=== PATIENT | female | born 1990 | race Caucasian/White ===

== ENCOUNTER 2016-12-07 03:31 | Observation (INO) | payer SELFPAY ==
[~2016-12-07] VITALS: Ht 172.7 cm; Wt 85.0 kg
[2016-12-07] VITALS (11 sets, daily range): BP systolic 111–144; BP diastolic 63–78; PULSE 60–78; RESP 15–18; TEMP 98–98.5; O2SAT 95–99
[2016-12-07] MEDS ORDERED: SODIUM CHLOR 0.9% 1000 ML INJ 1,000 ML IV ONE (03:55)
--- NOTE | 2016-12-07 03:59 | PD ---
HPI Chief Complaint: OD/ Ingestion Time Seen by Provider: 03:47 Travel History International Travel<30 days: No Contact w/Intl Traveler<30days: No Traveled to known affect area: No History of Present Illness HPI 26yo F with PMH of depression presents to the ED under No Act for suicidal attempt with overdose. Pt took 60 pills of trazadone and 60 pills of lexapro at around 3am. Her boyfriend called [facility]. Pt complaints of some headache. Denies any alcohol or drug use. Denies any fever, chest pain, sob, n/v, abdominal pain, focal weakness or numbness. PFSH Past Medical History Depression: Yes Tetanus Vaccination: Never Vaccinated Influenza Vaccination: No ?: Not LMP: 07/28/16 Past Surgical History Surgical History: No Previous Surgery Social History Alcohol Use: Yes Tobacco Use: No Substance Use: No Allergies-Medications (Allergen,Severity, Reaction): Coded Allergies: No Known Allergies (Unverified , 12/07/16) Reported Meds & Prescriptions Reported Meds & Active Scripts Active No Active Prescriptions or Reported Medications Review of Systems Except as stated in HPI: all other systems reviewed are Neg Physical Exam Narrative GENERAL: 26yo F sleepy but arousable. SKIN: Focused skin assessment warm/dry. HEAD: Atraumatic. Normocephalic. EYES: Pupils equal and round at 4mm bilaterally. EOMI. ENT: No nasal bleeding or discharge. Mucous membranes pink and moist. NECK: Trachea midline. No JVD. CARDIOVASCULAR: Regular rate and rhythm. No murmur appreciated. RESPIRATORY: No accessory muscle use. Clear to auscultation. Breath sounds equal bilaterally. GASTROINTESTINAL: Abdomen soft, non-tender, nondistended. MUSCULOSKELETAL: No obvious deformities. No clubbing. No cyanosis. No edema. NEUROLOGICAL: Sleep but arousable. Answers all questions. No focal neurologic deficits. Data Data Last Documented VS Vital Signs Date Time Temp Pulse Resp B/P (MAP) Pulse Ox O2 Delivery O2 Flow Rate FiO2 12/07/16 10:26 67 15 120/65 (83) 95 Room Air 12/07/16 09:50 2.00 12/07/16 03:47 98.3 Orders Orders Electrocardiogram (12/07/16 03:55) Complete Blood Count With Diff (12/07/16 03:55) Comprehensive Metabolic Panel (12/07/16 03:55) Prothrombin Time / Inr (Pt) (12/07/16 03:55) Act Partial Throm Time (Ptt) (12/07/16 03:55) Urinalysis - C+S If Indicated (12/07/16 03:55) Iv Access Insert/Monitor (12/07/16 03:55) Ecg Monitoring (12/07/16 03:55) Oximetry (12/07/16 03:55) Psych Screen (12/07/16 03:55) Sodium Chloride 0.9% Flush (Ns Flush) (12/07/16 04:00) Sodium Chlor 0.9% 1000 Ml Inj (Ns 1000 M (12/07/16 03:55) Call Poison Control (12/07/16 03:55) Alcohol (Ethanol) (12/07/16 03:55) Salicylates (Aspirin) (12/07/16 03:55) Tylenol (Acetaminophen) (12/07/16 03:55) Bhcg Screen Qualitative (12/07/16 03:55) Urine Culture (12/07/16 04:35) Drug Screen, Random Urine (12/07/16 05:21) Electrocardiogram (12/07/16 ) Potassium Chloride (Kcl) (12/07/16 06:45) Magnesium (Mg) (12/07/16 06:45) Electrocardiogram (12/07/16 09:00) Place In Observation (12/07/16 ) Code Status (12/07/16 09:36) Vital Signs (Adult) Q4H (12/07/16 09:36) Activity Bed Rest With Brp (12/07/16 09:36) Senior Mainframe Programmer Analyst / Telemetry .CONTINUOUS (12/07/16 09:36) Diet Regular Basic (12/07/16 Breakfast) Sodium Chlor 0.9% 1000 Ml Inj (Ns 1000 M (12/07/16 09:36) Sodium Chloride 0.9% Flush (Ns Flush) (12/07/16 09:45) Sodium Chloride 0.9% Flush (Ns Flush) (12/07/16 09:45) Basic Metabolic Panel (Bmp) (12/08/16 06:00) Complete Blood Count With Diff (12/08/16 06:00) Electrocardiogram (12/07/16 12:00) Case Management Consult (12/07/16 09:36) Scd Bilateral/Knee High RUSTY.BID (12/07/16 09:36) Naloxone Inj (Narcan Inj) (12/07/16 09:45) ^ Sitter (12/07/16 09:36) Consult Psychiatry (12/07/16 ) Resp Oxygen Stephan C Titrat 1-4 L (12/07/16 ) (Hub Use Only)Inp Phy Cons/Ref (12/07/16 ) Admit Order (Ed Use Only) (12/07/16 10:30) Labs Laboratory Tests Test 12/07/16 04:05 12/07/16 04:35 White Blood Count 7.9 TH/MM3 Red Blood Count 4.09 MIL/MM3 Hemoglobin 12.0 GM/DL Hematocrit 35.1 % Mean Corpuscular Volume 85.9 FL Mean Corpuscular Hemoglobin 29.3 PG Mean Corpuscular Hemoglobin Concent 34.1 % Red Cell Distribution Width 12.7 % Platelet Count 295 TH/MM3 Mean Platelet Volume 7.6 FL Neutrophils (%) (Auto) 77.0 % Lymphocytes (%) (Auto) 17.6 % Monocytes (%) (Auto) 3.6 % Eosinophils (%) (Auto) 1.0 % Basophils (%) (Auto) 0.8 % Neutrophils # (Auto) 6.1 TH/MM3 Lymphocytes # (Auto) 1.4 TH/MM3 Monocytes # (Auto) 0.3 TH/MM3 Eosinophils # (Auto) 0.1 TH/MM3 Basophils # (Auto) 0.1 TH/MM3 CBC Comment DIFF FINAL Differential Comment Prothrombin Time 11.7 SEC Prothromb Time International Ratio 1.1 RATIO Activated Partial Thromboplast Time 23.2 SEC Blood Urea Nitrogen 8 MG/DL Creatinine 0.62 MG/DL Random Glucose 127 MG/DL Total Protein 7.4 GM/DL Albumin 3.7 GM/DL Calcium Level 8.5 MG/DL Alkaline Phosphatase 57 U/L Aspartate Amino Transf (AST/SGOT) 19 U/L Alanine Aminotransferase (ALT/SGPT) 29 U/L Total Bilirubin 0.5 MG/DL Sodium Level 143 MEQ/L Potassium Level 3.2 MEQ/L Chloride Level 110 MEQ/L Carbon Dioxide Level 25.0 MEQ/L Anion Gap 8 MEQ/L Estimat Glomerular Filtration Rate 117 ML/MIN Magnesium Level 2.0 MG/DL Beta HCG, Qualitative LESS THAN 1 MIU/ML Salicylates Level LESS THAN 1.7 MG/DL Acetaminophen Level LESS THAN 2.0 MCG/ML Ethyl Alcohol Level LESS THAN 3 MG/DL Urine Color YELLOW Urine Turbidity HAZY Urine pH 5.5 Urine Specific [place] 1.028 Urine Protein TRACE mg/dL Urine Glucose (UA) NEG mg/dL Urine Ketones 10 mg/dL Urine Occult Blood NEG Urine Nitrite NEG Urine Bilirubin NEG Urine Urobilinogen 2.0 MG/DL Urine Leukocyte Esterase NEG Urine RBC 2 /hpf Urine WBC 2 /hpf Urine Squamous Epithelial Cells 2 /hpf Urine Amorphous Sediment RARE Urine Bacteria OCC /hpf Urine Hyaline Casts 2 /lpf Urine Mucus MANY /lpf Microscopic Urinalysis Comment CATH-CULTURE IND Urine Opiates Screen NEG Urine Barbiturates Screen NEG Urine Amphetamines Screen NEG Urine Benzodiazepines Screen NEG Urine Cocaine Screen NEG Urine Cannabinoids Screen NEG MDM Medical Decision Making Medical Screen Exam Complete: Yes Emergency Medical Condition: Yes Interpretation(s) EKG: NSR 73bpm Normal axis. TWI inversions V2, V3. QTc 450ms. EKG #2: NSR 84bpm. Normal axis. QTc prolonged at 493ms. Differential Diagnosis Overdose vs. seizure precaution Narrative Course 26yo F with suicidal attempt by overdosing on trazadone and lexapro. Pt is sleepy but easily arousable and answers questions. Follows commands. Poison control contacted and recommended repeat EKG from first EKG. Labs reviewed, no leukocytosis. Mild hypokalemia, replaced orally. Calcium normal. negative. LFTs normal. Alcohol negative. Acetaminophen negative. Salicylate negative. Utox negative. Repeat EKG showed prolong QTc so called poison control and they recommend adding magnesium and repeat EKG in 2 hours. Pt has been monitored on monitoring engineer in the ED and currently maintaining airway and following commands. Sign out to next team to follow up with repeat EKG and magnesium level and admit. Critical Care Narrative Aggregate critical care time was 40 minutes. Time to perform other billable procedures was not included in the critical care time. My time did not include minutes spent treating any other patients simultaneously or on activities that did not directly contribute to the patient's treatment. The services I provided to this patient were to treat and/or prevent clinically significant deterioration that could result in respiratory deterioration or . I provided critical care services requiring my management, as noted below: Chart data review, documentation time, medication orders and management, vital sign assessments/reviewing monitor data, ordering and reviewing lab tests, ordering and interpreting/reviewing x- rays and diagnostic studies. Diagnosis Primary Impression: Overdose Qualified Codes: T50.902A - Poisoning by unspecified drugs, medicaments and biological substances, intentional self-harm, initial encounter Admitting Information Admitting Physician Requests: Admit Scripts No Active Prescriptions or Reported Meds Abida Barba DO Dec 07, 2016 03:59
[2016-12-07] MEDS ORDERED: SODIUM CHLORIDE 0.9% FLUSH 10 ML FLUSH IVF PRN (04:00)
[2016-12-07 04:22] LABS: AUTOMATED NEUTROPHIL # 6.1 TH/MM3 (1.8-7.7); BASOPHIL # 0.1 TH/MM3 (0-0.2); BASOPHIL % 0.8 % (0.0-2.0); EOSINOPHIL # 0.1 TH/MM3 (0-0.4); HEMATOCRIT 35.1 % (35.0-46.0); HEMO FLAGS DIFF FINAL; LYMPH % 17.6 % (9.0-44.0); LYMPHOCYTE # 1.4 TH/MM3 (1.0-4.8); MEAN CELL VOLUME 85.9 FL (80.0-100.0); MEAN CORPUSCULAR HEMOGLOBIN 29.3 PG (27.0-34.0); MEAN CORPUSCULAR HGB CONC 34.1 % (32.0-36.0); MONO % 3.6 % (0.0-8.0); PLATELET COUNT 295 TH/MM3 (150-450); RED BLOOD COUNT 4.09 MIL/MM3 (4.00-5.30); RED CELL DISTRIBUTION WIDTH 12.7 % (11.6-17.2); WHITE BLOOD COUNT 7.9 TH/MM3 (4.0-11.0)
[2016-12-07 04:42] LABS: ALT (GPT) 29 U/L (10-53); ANION GAP 8 MEQ/L (5-15); AST (GOT) 19 U/L (15-37); BLOOD UREA NITROGEN 8 MG/DL (7-18); CHLORIDE 110 MEQ/L (98-107); GLOMERULAR FILTRATION RATE 117 ML/MIN (>89); POTASSIUM 3.2 MEQ/L (3.5-5.1); SODIUM (NA) 143 MEQ/L (136-145)
[2016-12-07 04:47] LABS: ALKALINE PHOSPHATASE 57 U/L (45-117); APTT (PATIENT) 23.2 SEC (24.3-30.1); INTERNATIONAL NORMALIZED RATIO 1.1 RATIO; PROTHROMBIN TIME - PATIENT 11.7 SEC (9.8-11.6); TOTAL BILIRUBIN ADULT 0.5 MG/DL (0.2-1.0)
[2016-12-07 04:48] LABS: ALCOHOL LESS THAN 3 MG/DL (0-5); BHCG SCREEN QUALITATIVE LESS THAN 1 MIU/ML (0-5)
[2016-12-07 04:49] LABS: ACETAMINOPHEN LESS THAN 2.0 MCG/ML (10.0-30.0)
[2016-12-07 04:57] LABS: BACTERIA, URINE OCC /hpf; BLOOD, URINE NEG (NEG); GLUCOSE,URINE NEG (NEG); HYALINE CAST, URINE 2 /lpf (RARE); KETONE, URINE 10 mg/dL (NEG); MUCUS URINE MANY /lpf (OCC); NITRITE,URINE NEG (NEG); PH, URINE 5.5 (5.0-8.5); SQUAMOUS EPITHELIAL CELL URINE 2 /hpf (0-5); URINE COLOR YELLOW (YELLW/STRAW)
[2016-12-07 04:59] LABS: COMMENT (UR) CATH-CULTURE IND; CULTURE IF INDICATED CATH CULTURE IND
[2016-12-07] MEDS ORDERED: POTASSIUM CHLORIDE 20 MEQ CONTROLLED RELEASE TAB PO ONE (06:45)
--- NOTE | 2016-12-07 07:26 | EKG ---
Date Performed: 12/07/2016 Time Performed: 06:24:26 PTAGE: 26 years EKG: Sinus rhythm NONSPECIFIC T-WAVE ABNORMALITY PROLONGED QT INTERVAL ABNORMAL ECG Compared to prior electrocardiogra m, Nonspecific T wave changes are less marked PREVIOUS TRACING : 12/07/2016 04.10 DOCTOR: Chepe Castillo Interpretating Date/Time 12/07/2016 07:25:26
--- NOTE | 2016-12-07 07:27 | EKG ---
Date Performed: 12/07/2016 Time Performed: 04:10:25 PTAGE: 26 years EKG: Sinus rhythm NONSPECIFIC T-WAVE ABNORMALITY Prolonged QT interval NO PREVIOUS TRACING DOCTOR: Chepe Castillo Interpretating Date/Time 12/07/2016 07:26:54
--- NOTE | 2016-12-07 09:14 | HHI.HP ---
HPI Service Family Medicine Primary Care Physician No Primary Care Physician Admission Diagnosis Diagnoses: International Travel<30 Days: No Contact w/Intl Traveler<30days: No Known Affected Area: No History of Present Illness Patient is a 26 year old female with PMH of depression presented to the ED under No Act for suicidal attempt over overdosing reportedly with 60 tablets of trazodone and 60 tablets of Lexapro at [place]. 03:00 today. Patient seen and examined in ED. No family or friends present with the patient however the patient is alert and oriented fully enough to answer questions appropriately. She states she took her whole bottle of trazodone early this morning around 3am and her whole bottle of lexapro as well. She states she is unsure exactly how many tablets this was but possibly 60 of her trazodone and at least 30 tablets of Lexapro. She states she took these with the intent to commit suicide. She denies to me a previous history of suicidal attempt. She states she recently moved to the [facility] and currently does not have a PCP nor psychiatrist and she had these medications prescribed from her previous psychiatrist. She had been staying with her mother in law a couple weeks ago but states she is now staying at a hotel. She reports currently feeling fatigued and having a headache. She otherwise does not have any complaints. She specifically denies any chest pain, palpitations, shortness of breath, abdominal pain, fevers or chills, blurry vision, numbness or weakness of any extremity. (Carter Moore MD R2) Review of Systems Constitutional: DENIES: Fever, Chills Eyes: DENIES: Blurred vision, Diplopia Respiratory: DENIES: Cough, Wheezing, Shortness of breath Cardiovascular: DENIES: Chest pain, Palpitations Gastrointestinal: DENIES: Abdominal pain, Nausea, Vomiting Neurologic: COMPLAINS OF: Headache, DENIES: Localized weakness Psychiatric: COMPLAINS OF: Depression, Suicidal Ideation, DENIES: Homicidal Ideation (Carter Moore MD R2) Past Family Social History Past Medical History Depression Past Surgical History Denies (Carter Moore MD R2) Allergies: Coded Allergies: No Known Allergies (Unverified , 12/07/16) Family History Mother: h/o etoh abuse and illicit drug abuse Father: Pt reports father had colon or prostate cancer, unsure of which Social History Tobacco: denies Etoh: denies any history of heavy drinking, states last drink about 2 weeks ago Illicit drug abuse: patient admits to remote history of cocaine use, none recently (Carter Moore MD R2) Physical Exam Vital Signs Vital Signs Date Time Temp Pulse Resp B/P (MAP) Pulse Ox O2 Delivery O2 Flow Rate FiO2 12/07/16 05:52 78 18 117/78 (91) 98 Nasal Cannula 2.00 12/07/16 04:06 99 Room Air 12/07/16 03:47 98.3 62 16 144/70 (94) 95 Physical Exam GENERAL: Ambulatory from bed to bathroom prior to history. Lethargic. Able to be aroused and conversive. NAD. NEURO: Oriented to place. Normal speech. printing and stamping supervisor grossly intact. Motor grossly normal. SKIN: Warm and dry. No rashes or erythema. HEAD: Normocephalic. Atraumatic. EYES: PERRL. EOMI. No scleral icterus. No injection or drainage. ENT: No nasal drainage. Moist mucous membranes. No oral ulcers or lesions. NECK: Supple, trachea midline. No JVD. CARDIOVASCULAR: Regular rate and rhythm without murmurs, rubs, or gallops. Peripheral pulses 2+. Capillary refill < 2 seconds. RESPIRATORY: Breath sounds clear to auscultation and equal bilaterally, without wheezes, rales, or rhonchi. No accessory muscle use. GASTROINTESTINAL: Abdomen soft, nontender, nondistended, normal BS. No organomegaly or masses. No guarding. MUSCULOSKELETAL: No lower extremity edema. Normal range of motion. Laboratory Laboratory Tests Test 12/07/16 04:05 12/07/16 04:35 White Blood Count 7.9 Red Blood Count 4.09 Hemoglobin 12.0 Hematocrit 35.1 Mean Corpuscular Volume 85.9 Mean Corpuscular Hemoglobin 29.3 Mean Corpuscular Hemoglobin Concent 34.1 Red Cell Distribution Width 12.7 Platelet Count 295 Mean Platelet Volume 7.6 Neutrophils (%) (Auto) 77.0 Lymphocytes (%) (Auto) 17.6 Monocytes (%) (Auto) 3.6 Eosinophils (%) (Auto) 1.0 Basophils (%) (Auto) 0.8 Neutrophils # (Auto) 6.1 Lymphocytes # (Auto) 1.4 Monocytes # (Auto) 0.3 Eosinophils # (Auto) 0.1 Basophils # (Auto) 0.1 CBC Comment DIFF FINAL Differential Comment Prothrombin Time 11.7 Prothromb Time International Ratio 1.1 Activated Partial Thromboplast Time 23.2 Blood Urea Nitrogen 8 Creatinine 0.62 Random Glucose 127 Total Protein 7.4 Albumin 3.7 Calcium Level 8.5 Alkaline Phosphatase 57 Aspartate Amino Transf (AST/SGOT) 19 Alanine Aminotransferase (ALT/SGPT) 29 Total Bilirubin 0.5 Sodium Level 143 Potassium Level 3.2 Chloride Level 110 Carbon Dioxide Level 25.0 Anion Gap 8 Estimat Glomerular Filtration Rate 117 Magnesium Level 2.0 Beta HCG, Qualitative LESS THAN 1 Salicylates Level LESS THAN 1.7 Acetaminophen Level LESS THAN 2.0 Ethyl Alcohol Level LESS THAN 3 Urine Color YELLOW Urine Turbidity HAZY Urine pH 5.5 Urine Specific [place] 1.028 Urine Protein TRACE Urine Glucose (UA) NEG Urine Ketones 10 Urine Occult Blood NEG Urine Nitrite NEG Urine Bilirubin NEG Urine Urobilinogen 2.0 Urine Leukocyte Esterase NEG Urine RBC 2 Urine WBC 2 Urine Squamous Epithelial Cells 2 Urine Amorphous Sediment RARE Urine Bacteria OCC Urine Hyaline Casts 2 Urine Mucus MANY Microscopic Urinalysis Comment CATH-CULTURE IND Urine Opiates Screen NEG Urine Barbiturates Screen NEG Urine Amphetamines Screen NEG Urine Benzodiazepines Screen NEG Urine Cocaine Screen NEG Urine Cannabinoids Screen NEG Date/Time Source Procedure Growth Status 12/07/16 04:35 Urine Catheterized Urine Urine Culture Pending Received (Carter Moore MD R2) Result Diagram: 12/07/1640412/07/16404 Caprini VTE Risk Assessment Caprini VTE Risk Assessment: No/Low Risk (score <= 1) Caprini Risk Assessment Model Point Value = 1 Point Value = 2 Point Value = 3 Point Value = 5 Age 41-60 Minor surgery BMI > 25 kg/m2 Swollen legs Varicose veins or History of unexplained or recurrent spontaneous Oral contraceptives or hormone replacement Sepsis (< 1 month) Serious lung disease, including pneumonia (< 1 month) Abnormal pulmonary function Acute myocardial infarction Congestive heart failure (< 1 month) History of inflammatory bowel disease Medical patient at bed rest Age 61-74 Arthroscopic surgery Major open surgery (> 45 min) Laparoscopic surgery (> 45 min) Malignancy Confined to bed (> 72 hours) Immobilizing plaster cast Central venous access Age >= 75 History of VTE Family history of VTE Factor V Leiden Prothrombin [id number] Lupus anticoagulant Anticardiolipin antibodies Elevated serum homocysteine Heparin-induced thrombocytopenia Other congenital or acquired thrombophilia Stroke (< 1 month) Elective arthroplasty Hip, pelvis, or leg fracture Acute spinal cord injury (< 1 month) Prophylaxis Regimen Total Risk Factor Score Risk Level Prophylaxis Regimen 0-1 Low Early ambulation 2 Moderate Order ONE of the following: *Sequential Compression Device (SCD) *Heparin 5000 units SQ BID 3-4 Higher Order ONE of the following medications: *Heparin 5000 units SQ TID *Enoxaparin/Lovenox 40 mg SQ daily (WT < 150 kg, CrCl > 30 mL/min) *Enoxaparin/Lovenox 30 mg SQ daily (WT < 150 kg, CrCl > 10-29 mL/min) *Enoxaparin/Lovenox 30 mg SQ BID (WT < 150 kg, CrCl > 30 mL/min) AND/OR *Sequential Compression Device (SCD) 5 or more Highest Order ONE of the following medications: *Heparin 5000 units SQ TID (Preferred with Epidurals) *Enoxaparin/Lovenox 40 mg SQ daily (WT < 150 kg, CrCl > 30 mL/min) *Enoxaparin/Lovenox 30 mg SQ daily (WT < 150 kg, CrCl > 10-29 mL/min) *Enoxaparin/Lovenox 30 mg SQ BID (WT < 150 kg, CrCl > 30 mL/min) AND *Sequential Compression Device (SCD) (Carter Moore MD R2) Assessment and Plan Assessment and Plan 26 year old female with h/o depression being admitted following an overdose with intent to commit suicide. Patient is Oneal moya. Code Status Full code Discussed Condition With Dr. Olga Franklin (Carter Moore MD R2) Attending Attestation THIS CASE WAS DISCUSSED WITH THE RESIDENT PHYSICIANS. I HAVE REVIEWED THE RECORD AND AGREE WITH THE ABOVE NOTE AND PLAN OF CARE WAS DISCUSSED. I HAVE AUTHORIZED THE ORDER FOR ADMISSION TO AN IN-PATIENT STATUS. (Marleen Rayo MD) Problem List: (1) Suicide attempt ICD Codes: T14.91XA - Suicide attempt, initial encounter Status: Acute Plan: - Patient Oneal moya - 1:1 sitter - Anticipate inpatient stay in psychiatric unit once medically stable - Psychiatry consulted, recommendations appreciated (2) Medication overdose ICD Codes: T50.901A - Poisoning by unspecified drugs, medicaments and biological substances, accidental (unintentional), initial encounter Status: Acute Plan: - Plan as above - Vitals stable - UDS negative, etoh <3, acetaminophen < 2, salicylate negative (3) QT prolongation ICD Codes: R94.31 - Abnormal electrocardiogram [ECG] [EKG] Status: Acute Plan: - Poison control contacted regarding QTc prolongation. Recommended repeat EKG and obtaining Mg level - QTc intervals on EKG trended 447 -> 494 -> 417 - Mg nml 2.0 - Continuous telemetry (4) Hypokalemia ICD Codes: E87.6 - Hypokalemia Status: Acute Plan: K+ 3.2 on admission, repleted orally with 40 mEq KCL Continue to monitor (5) Depression ICD Codes: F32.9 - Major depressive disorder, single episode, unspecified Status: Chronic Plan: - Psychiatry consulted - Anticipate inpatient psychiatric stay for stabilization of symptoms - Currently not established with a psychiatrist (6) Nutrition, metabolism, and development symptoms ICD Codes: R63.8 - Other symptoms and signs concerning food and fluid intake Status: Acute Plan: Fluids: NS at 100 cc/hr Electrolytes: replete K as above, continue to monitor lytes Nutrition: Regular (Carter Moore MD R2) Physician Certification 2 Midnight Certification Type: Admission for Inpatient Services Order for Inpatient Services The services are ordered in accordance with Medicare regulations or non- Medicare payer requirements, as applicable. In the case of services not specified as inpatient-only, they are appropriately provided as inpatient services in accordance with the 2-midnight benchmark. Estimated LOS (days): 2 days is the estimated time the patient will need to remain in the hospital, assuming treatment plan goals are met and no additional complications. Post-Hospital Plan: Home (Carter Moore MD R2) 2 Midnight Certification Type: Admission for Inpatient Services Post-Hospital Plan: Home (Marleen Rayo MD) Problem Qualifiers (1) Depression: Qualified Codes: F32.9 - Major depressive disorder, single episode, unspecified Carter Moore MD R2 Dec 07, 2016 09:14 Marleen Rayo MD Dec 08, 2016 13:29
[2016-12-07] MEDS ORDERED: NALOXONE HCL 0.4 MG/ML AMP IV PUSH PRN (09:45)
[2016-12-07] MEDS ORDERED: SODIUM CHLORIDE 0.9% FLUSH 10 ML FLUSH IV FLUSH PRN (09:45)
[2016-12-07] MEDS: SODIUM CHLOR 0.9% 1000 ML INJ 1,000 ML IV SCH ×2 (10:26→21:32)
[2016-12-07] MEDS: SODIUM CHLORIDE 0.9% FLUSH 10 ML FLUSH IV FLUSH SCH ×2 (10:26→21:00)
--- NOTE | 2016-12-07 12:08 | EKG ---
Date Performed: 12/07/2016 Time Performed: 09:16:56 PTAGE: 26 years EKG: Sinus rhythm NONSPECIFIC T-WAVE ABNORMALITY BORDERLINE ECG INTERPRETATION BASED ON A DEFAULT AGE OF 40 YEARS No s ignificant change from prior electrocardiogram. PREVIOUS TRACING : 12/07/2016 06.24 DOCTOR: Chepe Castillo Interpretating Date/Time 12/07/2016 12:07:35
[2016-12-08 00:09] VITALS: BP 108/62; PULSE 61; RESP 16; TEMP 98.4; O2SAT 97
[2016-12-08 03:57] VITALS: BP 107/60; PULSE 67; RESP 15; TEMP 98.2; O2SAT 97
[2016-12-08 07:31] LABS: AUTOMATED NEUTROPHIL # 3.1 TH/MM3 (1.8-7.7); BASOPHIL # 0.1 TH/MM3 (0-0.2); BASOPHIL % 0.8 % (0.0-2.0); EOSINOPHIL # 0.1 TH/MM3 (0-0.4); EOSINOPHIL % 1.1 % (0.0-4.0); HEMATOCRIT 34.2 % (35.0-46.0); HEMO FLAGS DIFF FINAL; LYMPH % 46.2 % (9.0-44.0); MEAN CELL VOLUME 87.4 FL (80.0-100.0); MEAN CORPUSCULAR HEMOGLOBIN 29.4 PG (27.0-34.0); MEAN CORPUSCULAR HGB CONC 33.6 % (32.0-36.0); MONO % 5.2 % (0.0-8.0); NEUT % 46.7 % (16.0-70.0); PLATELET COUNT 255 TH/MM3 (150-450); RED BLOOD COUNT 3.91 MIL/MM3 (4.00-5.30); RED CELL DISTRIBUTION WIDTH 12.6 % (11.6-17.2); WHITE BLOOD COUNT 6.6 TH/MM3 (4.0-11.0)
[2016-12-08 07:56] VITALS: BP 113/61; PULSE 66; RESP 16; TEMP 98.3; O2SAT 97
[2016-12-08 07:57] LABS: BICARBONATE 25.7 MEQ/L (21.0-32.0); POTASSIUM 3.5 MEQ/L (3.5-5.1)
[2016-12-08 08:00] VITALS: PULSE 61
[2016-12-08] MEDS: SODIUM CHLORIDE 0.9% FLUSH 10 ML FLUSH IV FLUSH SCH (09:00)
--- NOTE | 2016-12-08 09:45 | HHI.DCPOC ---
Discharge Care Plan Diagnosis: (1) Overdose (2) Hypokalemia (3) Depression (4) Suicide attempt Goals to Promote Your Health Patient cleared medically for discharge to home or in patient psychiatric facility. * To prevent worsening of your condition and complications * To maintain your health at the optimal level Directions to Meet Your Goals Take your medications as prescribed Follow your dietary instruction Follow activity as directed Keep your appointments as scheduled Take your immunizations and boosters as scheduled If your symptoms worsen call your PCP, if no PCP go to Urgent Care Center or Emergency Room Smoking is Dangerous to Your Health. Avoid second hand smoke Call the 24-hour hour crisis hotline for domestic abuse at Harsha Ocasio MD, R3 Dec 08, 2016 09:45
--- NOTE | 2016-12-08 09:50 | HHI.FPPN ---
Problem Problem List: (1) Suicide attempt (2) Overdose (3) Hypokalemia (4) QT prolongation (5) Depression Subjective Subjective Patient is a 26 year old female with PMH of depression presented to the ED under No Act for suicidal attempt over overdosing reportedly with 60 tablets of trazodone and 60 tablets of Lexapro at [facility]. 03:00 on Dec 07. PShe states she took these with the intent to commit suicide. She denies to me a previous history of suicidal attempt. She states she recently moved to the [facility] and currently does not have a PCP nor psychiatrist and she had these medications prescribed from her previous psychiatrist. She had been staying with her mother in law a couple weeks ago but states she is now staying at a hotel. S On admission it was noted she had a prolonged Qtc and she was somewhat somnolent. On exam today, she is back to her baseline and is alert and awake with no complaints. Her Qtc has normalized and her electrolytes have normalized. This morning she states she was taking her pills to help her sleep and not commit suicide which contradicts her statemtns made upon admission. Marissa has not yet evaluated the patient. Review of Systems ROS negative except as above Past Family Social History Past Medical History Depression Past Surgical History Denies Allergies: Coded Allergies: No Known Allergies Family History Mother: h/o etoh abuse and illicit drug abuse Father: Pt reports father had colon or prostate cancer, unsure of which Social History Tobacco: denies Etoh: denies any history of heavy drinking, states last drink about 2 weeks ago Illicit drug abuse: patient admits to remote history of cocaine use, none recently Hospital Objective Objective Laboratory Tests - Abnormals Test 12/08/16 07:01 Red Blood Count 3.91 MIL/MM3 Hemoglobin 11.5 GM/DL Hematocrit 34.2 % Lymphocytes (%) (Auto) 46.2 % Blood Urea Nitrogen 4 MG/DL Calcium Level 8.3 MG/DL Chloride Level 112 MEQ/L Vital Signs 12/07/16 12/07/16 12/07/16 12/07/16 09:50 10:26 12:05 12:10 Temp 98.0 Pulse 67 68 Resp 15 16 B/P (MAP) 120/65 (83) 114/63 (80) Pulse Ox 98 95 98 O2 Delivery Nasal Cannula Room Air O2 Flow Rate 2.00 1012/07/16 12/07/16 12/07/16 13:02 14:55 15:30 20:04 Temp 98.2 98.5 Pulse 60 64 61 65 Resp 16 17 B/P (MAP) 111/66 (81) 114/66 (82) Pulse Ox 96 97 12/07/16 12/08/16 12/08/16 12/08/16 20:59 00:09 03:57 07:56 Temp 98.4 98.2 98.3 Pulse 63 61 67 66 Resp 16 15 16 B/P (MAP) 108/62 (77) 107/60 (76) 113/61 (78) Pulse Ox 97 97 97 Physical exam O. CONSTITUTIONAL/GEN: normally nourished, in NAD. EYES: conjunctiva normal, PERRLA, EOMI. ENT: Mouth and pharynx normal. NECK: thyroid midline, carotids symmetrical. LUNGS: clear A-P, respiratory effort is normal. CARDIOVASCULAR: RR without murmur or gallop. No significant edema. GI/ABD: soft without masses, without organomegaly. : no CVA tenderness NEURO: No focal deficits. Gait is normal SKIN: color normal, no rashes noted. HEME/LYMPH: no bruising, petechia or significant adenopathy MUSC: back is normal in appearance. Extremities are normal in appearance. PSYCH/MENTAL STATUS: Alert and oriented x 3. Assessment Assessment: (1) Suicide attempt (2) Overdose (3) Hypokalemia (4) QT prolongation (5) Depression Assessment 26 year old female with poor social support and h/o depression s/p suicide attempt by ingestion of lexapro and trazadone that is now medically stable and back to baseline. PLAN PLAN Patient is cleared for discharge into psych care at this time. Awaiting Psych eval of the patient today. Depression medications and treatment per the psychiatrist. Pt to establish with local PCP if she follows in the area. Patient was seen and dw with the resident team -- Dr. Ocasio, Dr. Moore, Dr. Rigoberto Rayo,Marleen Finn MD Dec 08, 2016 09:50
[2016-12-08] MEDS: SODIUM CHLOR 0.9% 1000 ML INJ 1,000 ML IV SCH ×2 (09:52→09:55)
[2016-12-08 11:23] VITALS: BP 109/62; PULSE 79; RESP 18; TEMP 98.1; O2SAT 98
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
[2016-12-08 15:12] VITALS: BP 108/63; PULSE 69; RESP 18; TEMP 98.4; O2SAT 97
--- NOTE | 2016-12-08 23:07 | EKG ---
Date Performed: 12/07/2016 Time Performed: 12:21:35 PTAGE: 26 years EKG: Sinus rhythm NONSPECIFIC T-WAVE ABNORMALITY INCREASED QT BORDERLINE ECG PREVIOUS TRACING : 12/07/2016 09.16 Compared to the previous tracing increased QT present DOCTOR: Hira Summers Interpretating Date/Time 12/08/2016 23:06:42
== END 2016-12-08 18:40 ==
LOC: NEPE 03:31 → NEDA 10:32 → NEPGCP 12:13
PROVIDERS: ADMIT Family Medicine; ATTEND Family Medicine
DX: T43.212A Poisoning by selective serotonin and norepinephrine reuptake inhibitors, intentional self-harm, initial encounter (principal); F32.9 Major depressive disorder, single episode, unspecified; E87.6 Hypokalemia; R94.31 Abnormal electrocardiogram [ECG] [EKG]
CPT/HCPCS: 80048; 80053; 80307; 81001; 83735; 84703; 85025; 85610; 85730; 87086; 93005; 96360; 96361; 99285; G0378; J7030

== ENCOUNTER 2016-12-08 17:40 | Inpatient (IN) | payer SELFPAY ==
[~2016-12-08] VITALS: Ht 172.7 cm; Wt 83.3 kg
[2016-12-08 19:09] VITALS: BP 106/59; PULSE 78; RESP 18; TEMP 96.2; O2SAT 96
[2016-12-08] MEDS ORDERED: hydrOXYzine HCL 50 MG TAB PO PRN (19:45)
[2016-12-08] MEDS ORDERED: ALUMINUM/MAGNESIUM/SIMETH 30 ML CUP PO PRN (19:45)
[2016-12-08] MEDS ORDERED: BENZTROPINE MESYLATE 2 MG/2 ML VIAL IM PRN (19:45)
[2016-12-08] MEDS ORDERED: BENZTROPINE MESYLATE 1 MG TAB PO PRN (19:45)
[2016-12-08] MEDS ORDERED: ACETAMINOPHEN 325 MG TAB PO PRN (19:45)
[2016-12-08] MEDS ORDERED: MAGNESIUM HYDROXIDE SUSP 30 ML CUP PO PRN (19:45)
[2016-12-09 06:27] VITALS: BP 95/59; PULSE 69; RESP 16; TEMP 98.1; O2SAT 98
[2016-12-09] MEDS: REMOVE OLD PATCH T-DERMAL SCH (07:30)
[2016-12-09] MEDS: NICOTINE 21 MG/24 HR PATCH T-DERMAL SCH (07:30)
[2016-12-09 12:02] LABS: HDL CHOLESTEROL 31.7 MG/DL (40.0-60.0); LDL CHOLESTEROL 60 MG/DL (0-99)
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
--- NOTE | 2016-12-09 13:18 | PD.CONS ---
History of Present Illness Service Medicine Consult Requested By Psychiatry Reason for Consult Assist with medical conditions Primary Care Physician No Primary Care Physician Diagnoses: History of Present Illness Patient is a 26 year old female with PMH of depression admitted on 12/07 following an overdose she reported of 60 tablets of trazodone and 60 tablets of Lexapro. She had stated at that time her intent was to commit suicide. She was monitored with serial EKGs after having found to have a prolonged QTc interval up to 494. Repeat interval on EKG trended to within normal limits. She currently does not have a PCP and has no known chronic medical conditions. On prior admission she was found to be hypokalemic which resolved with oral supplementation. Patient seen and examined this morning. She currently has no complaints or concerns other than wanting to go home. She denies any chest pain , palpitations, shortness of breath, fevers. (Carter Moore MD R2) Review of Systems Constitutional: DENIES: Fever, Chills Respiratory: DENIES: Shortness of breath Cardiovascular: DENIES: Chest pain, Palpitations Gastrointestinal: DENIES: Abdominal pain (Carter Moore MD R2) Past Family Social History Allergies: Coded Allergies: No Known Allergies (Unverified , 12/07/16) Past Medical History Depression Past Surgical History Denies Family History Mother: h/o etoh abuse and illicit drug abuse Father: Pt reports father had colon or prostate cancer, unsure of which Social History Tobacco: denies Etoh: denies any history of heavy drinking, states last drink was about 2 weeks ago Illicit drug abuse: patient admits to remote history of cocaine use, none recently (Carter Moore MD R2) Physical Exam Vital Signs Vital Signs Date Time Temp Pulse Resp B/P (MAP) Pulse Ox O2 Delivery O2 Flow Rate FiO2 12/09/16 06:27 98.1 69 16 95/59 (71) 98 12/08/16 19:09 96.2 78 18 106/59 (75) 96 Physical Exam GENERAL: NAD, very pleasant, sitting comfortably in bed NEURO: Alert. Normal speech. radiology receptionist grossly intact. Motor grossly normal. Gait normal. SKIN: Warm and dry. No rashes or erythema. HEAD: Normocephalic. Atraumatic. EYES: EOMI. No injection or drainage. ENT: No nasal drainage. Moist mucous membranes. NECK: Supple, trachea midline. CARDIOVASCULAR: Regular rate and rhythm without murmurs, rubs, or gallops RESPIRATORY: Breath sounds clear to auscultation and equal bilaterally, without wheezes, rales, or rhonchi. No accessory muscle use. GASTROINTESTINAL: Abdomen nondistended MUSCULOSKELETAL: No lower extremity edema. Normal range of motion. BACK: Without obvious deformity. Laboratory Laboratory Tests Test 12/09/16 10:40 Triglycerides Level 140 Cholesterol Level 120 LDL Cholesterol 60 HDL Cholesterol 31.7 Cholesterol/HDL Ratio 3.78 Thyroid Stimulating Hormone 3rd Gen 0.704 (Carter Moore MD R2) Assessment and Plan Problem List: (1) Depression ICD Codes: F32.9 - Major depressive disorder, single episode, unspecified Status: Chronic (2) Hypokalemia ICD Codes: E87.6 - Hypokalemia Status: Resolved Assessment and Plan 26 year old very pleasant female recently admitted on 12/07 following an overdose with trazodone and Lexapro and found to have prolonged QTc interval and hypokalemia on admission which has since resolved. Patient was medically cleared and has been admitted to psychiatry for stabilization of psychiatric symptoms. - Patient with no medical complaints at this time, acute medical conditions have resolved since admission - Lipid panel with low HDL, otherwise WNL - TSH within normal limits - Will follow A1c, currently pending - Will sign off. Please reconsult if needed. Thank you for the consultation. Discussed Condition With Dr. Olga Franklin (Carter Moore MD R2) Physician Attestation Patient seen and examined. Case reviewed and discussed with the resident team. Agree with plan of care as discussed with me and documented in the resident note. (Marleen Rayo MD) Carter Moore MD R2 Dec 09, 2016 13:18 Marleen Rayo MD Dec 09, 2016 13:50
--- NOTE | 2016-12-09 15:10 | PD.TTN ---
Patient Problems 1. Discharge planning 2. Medication compliance 3. Knowledge deficit 4. Lack of coping skills Progress Toward Goals Provider Present: Dr. Anjali Bearden Provider Input: Dr. Bearden requested this counselor speak to patient's family to obtain additional information. Nurse(s) Input: Nurse Elif reported the patient's mother has been calling demanding that patient be discharged. Psychiatric Counselors Present: BEN Ibarra Psych Therapist Input: Counselor reported the patient is a new admission and that I will contact family for collateral information. Discharge Plan SMA, Other Documentation Scribe: BEN Ibarra Date Resolved: Dec 09, 2016 Jess Lozano Dec 09, 2016 15:10
[2016-12-09 15:33] LABS: HEMOGLOBIN A1a 0.8 %; HEMOGLOBIN A1b 0.6 %; HEMOGLOBIN F 0.7 %; HEMOGLOBIN LA1C 1.8 %; HEMOGLOBIN P3 3.1 %
[2016-12-09 16:37] VITALS: BP 113/65; PULSE 66; RESP 17; TEMP 98; O2SAT 99
[2016-12-10 05:34] VITALS: BP 99/52; PULSE 67; RESP 16; TEMP 97.9; O2SAT 97
[2016-12-10] MEDS: REMOVE OLD PATCH T-DERMAL SCH (07:30)
[2016-12-10] MEDS: NICOTINE 21 MG/24 HR PATCH T-DERMAL SCH (07:30)
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
== END 2016-12-10 14:10 | disposition left against medical advice (07) | DRG 882 ==
LOC: H260 17:40
PROVIDERS: ADMIT Psychiatry & Neurology Psychiatry; ATTEND Psychiatry & Neurology Psychiatry
DX: F43.25 Adjustment disorder with mixed disturbance of emotions and conduct (principal); F41.9 Anxiety disorder, unspecified; Z81.1 Family history of alcohol abuse and dependence
CPT/HCPCS: 80061; 83036; 84443

== ENCOUNTER 2017-01-30 13:11 | Emergency (ER) | payer SELFPAY ==
[~2017-01-30] VITALS: Ht 175.3 cm; Wt 81.5 kg
[2017-01-30 13:14] VITALS: BP 126/85; PULSE 80; RESP 16; TEMP 98.6; O2SAT 99
[2017-01-30 13:40] LABS: CHLORIDE 106 MEQ/L (98-107); POTASSIUM 3.6 MEQ/L (3.5-5.1); SODIUM (NA) 140 MEQ/L (136-145)
[2017-01-30 13:45] LABS: ANION GAP 8 MEQ/L (5-15); BICARBONATE 26.2 MEQ/L (21.0-32.0); BLOOD UREA NITROGEN 6 MG/DL (7-18)
[2017-01-30 13:48] LABS: ALT (GPT) 20 U/L (10-53); AST (GOT) 12 U/L (15-37); GLOMERULAR FILTRATION RATE 113 ML/MIN (>89)
[2017-01-30 13:51] LABS: ALKALINE PHOSPHATASE 60 U/L (45-117)
[2017-01-30 14:03] LABS: AUTOMATED NEUTROPHIL # 5.8 TH/MM3 (1.8-7.7); BASOPHIL % 0.5 % (0.0-2.0); EOSINOPHIL # 0.1 TH/MM3 (0-0.4); EOSINOPHIL % 1.3 % (0.0-4.0); HEMATOCRIT 36.9 % (35.0-46.0); HEMO FLAGS DIFF FINAL; LYMPH % 22.5 % (9.0-44.0); LYMPHOCYTE # 1.8 TH/MM3 (1.0-4.8); MEAN CELL VOLUME 87.2 FL (80.0-100.0); MEAN CORPUSCULAR HEMOGLOBIN 28.7 PG (27.0-34.0); MEAN CORPUSCULAR HGB CONC 32.9 % (32.0-36.0); MONO % 5.3 % (0.0-8.0); NEUT % 70.4 % (16.0-70.0); PLATELET COUNT 265 TH/MM3 (150-450); RED BLOOD COUNT 4.24 MIL/MM3 (4.00-5.30); WHITE BLOOD COUNT 8.1 TH/MM3 (4.0-11.0)
[2017-01-30] MEDS ORDERED: IOHEXOL 350 MG/ML 10 ML VIAL (for RAD DIAG) IVCONTRAST ONE (14:27)
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
[2017-01-30] MEDS ORDERED: ONDANSETRON HCL 4 MG/2 ML VIAL IV PUSH ONE (15:30)
[2017-01-30] MEDS ORDERED: MORPHINE SULFATE 4 MG/ML INJ IV PUSH ONE (15:30)
[2017-01-30] MEDS ORDERED: PERC5TAB12 PO (16:19)
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
[2017-01-30 16:32] VITALS: BP 131/86; PULSE 95; RESP 16; O2SAT 97
== END 2017-01-30 16:35 | disposition home or self-care (01) ==
LOC: PHED 13:11
DX: S02.609A Fracture of mandible, unspecified, initial encounter for closed fracture (principal); Y09 Assault by unspecified means
CPT/HCPCS: 70450; 70486; 72125; 74177; 80053; 84703; 85025; 96374; 96375; 99285; J2270; J2405; Q9967

== ENCOUNTER 2017-02-10 11:16 | Observation (INO) | payer SELFPAY ==
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
[~2017-02-10] VITALS: Ht 175.3 cm; Wt 81.1 kg
[2017-02-10] MEDS ORDERED: LACTATED RINGER'S 1000 ML IV PRN (12:00)
[2017-02-10] MEDS ORDERED: SODIUM CHLORID 0.9% 500 ML IV PRN (12:00)
[2017-02-10] MEDS ORDERED: DEXAMETHASONE SOD PHOS 4 MG/ML VIAL IV ONE (12:00)
[2017-02-10] MEDS ORDERED: ONDANSETRON HCL 4 MG/2 ML VIAL IV ONE (12:00)
[2017-02-10] MEDS ORDERED: ceFAZolin INJ 1,000 MG VIAL IV ONE (12:00)
[2017-02-10] MEDS ORDERED: PROPOFOL 200 MG/20 ML AMP IV ONE (12:00)
[2017-02-10] MEDS ORDERED: POVIDONE IODINE 5% (ANTISEPSIS KIT) 4 APPLICATIONS EACH NARE PRN (12:00)
[2017-02-10] MEDS ORDERED: CHLORHEXIDINE GLUCONATE 2 % 1 PACK (2 CLOTHS) TOPICAL PRN (12:00)
[2017-02-10] MEDS ORDERED: METOPROLOL TARTRATE 25 MG TAB PO PRN (12:00)
[2017-02-10] MEDS ORDERED: ROCURONIUM INJ 50 MG/5 ML SYRINGE IV PUSH ONE (12:00)
[2017-02-10] MEDS ORDERED: GLYCOPYRROLATE 1 MG/5 ML SYRINGE IV PUSH ONE (12:00)
[2017-02-10] MEDS ORDERED: NEOSTIGMINE 5 MG/5 ML SYRINGE IV PUSH ONE (12:00)
[2017-02-10] MEDS ORDERED: LIDOCAINE HCL 1% PF 5 ML SYRINGE OTHER ONE (12:00)
[2017-02-10] MEDS ORDERED: LIDOCAINE 1%/EPINEPHrine 1:100,000 SOLN 50 ML VIAL ONE (13:13)
[2017-02-10] MEDS ORDERED: ceFAZolin INJ 1,000 MG VIAL ONE (13:44)
[2017-02-10] MEDS ORDERED: DO NOT ADM ANY ANTICOAGULANT DRUGS PRN (15:30)
[2017-02-10] MEDS: DEXT 5%-NACL 0.45% 1000 ML INJ 1,000 ML IV SCH (15:42)
[2017-02-10] MEDS ORDERED: *morphine SULFATE 8 MG/ML PERIprocedure ONLY ONE ×3 (15:54→16:06)
[2017-02-10] MEDS ORDERED: *HYDROmorphone PF 1 MG VIAL PERIprocedural Use ONLY ONE ×2 (16:12→16:28)
[2017-02-10] MEDS ORDERED: MORPHINE SULFATE 2 MG/ML INJ IV PRN (17:15)
[2017-02-10] MEDS: oxyCODONE/ACETAMINOPHEN 5 MG/325 MG TAB PO PRN (19:51)
[2017-02-10 20:15] VITALS: BP 108/72; PULSE 58; RESP 17; TEMP 96.3; O2SAT 96
[2017-02-11] VITALS (7 sets, daily range): BP systolic 98–118; BP diastolic 61–77; PULSE 54–77; RESP 17–19; TEMP 95.4–96.9; O2SAT 96–99
[2017-02-11] MEDS: DEXT 5%-NACL 0.45% 1000 ML INJ 1,000 ML IV SCH ×2 (02:17→04:21)
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
--- NOTE | 2017-02-11 07:37 | HHI.PR ---
Subjective Remarks POD 1 s/p ORIF left mandible angle fracture/right mandible parasymphysis fracture pt seen and examined aaox3 nad, no complaints tolerating po, ambulating, voiding Objective Vital Signs Date Time Temp Pulse Resp B/P (MAP) Pulse Ox O2 Delivery O2 Flow Rate FiO2 02/11/17 04:07 96.9 56 17 105/61 (76) 96 02/11/17 00:10 96.2 54 17 98/66 (77) 96 02/10/17 20:15 96.3 58 17 108/72 (84) 96 02/10/17 18:09 Nasal Cannula 2.00 02/10/17 17:00 97.8 61 16 119/67 (84) 97 Nasal Cannula 2 02/10/17 16:45 52 12 119/67 (84) 98 02/10/17 16:30 53 12 118/66 (83) 98 02/10/17 16:15 63 11 132/79 (96) 99 02/10/17 16:00 65 20 147/86 (106) 95 02/10/17 15:45 60 20 165/95 (118) 96 02/10/17 15:30 59 16 143/89 (107) 95 02/10/17 15:18 97.8 81 20 147/81 (103) 92 Room Air 02/10/17 13:15 98.5 65 18 114/68 (83) 98 I/O 02/10/17 02/10/17 02/10/17 02/11/17 02/11/17 02/11/17 07:00 15:00 23:00 07:00 15:00 23:00 Intake Total 1440 ml 1429 ml Output Total 100 ml Balance 1340 ml 1429 ml Intake Oral 240 ml 240 ml IV Total 200 ml 1189 ml Other 1000 ml Output Estimated Blood Loss 100 ml # Voids 1 3 # Bowel Movements 0 0 Objective Remarks mild left facial edema no neck edema intraorally tissues pink/well perfused bite in occlusion and reproducible all intraoral/extraoral wound margins well approximated/sutures intact; hemostatic residual left v3 paraesthesia Assessment and Plan Assessment and Plan POD 1 s/p ORIF left mandible angle fracture/right mandible parasymphysis fracture ok to d/c to home today f/up dr soto in 2 weeks [phone] mechanically soft diet 'maintain good oral hygiene no strenuous activity/exercises ice to b/l face/mandible region x 24 hours 20 min on 20 min off sleep hob 30 deg; head elevated rx's at home. Maximiliano Ng DMD Feb 11, 2017 07:37
[2017-02-11] MEDS: oxyCODONE/ACETAMINOPHEN 5 MG/325 MG TAB PO PRN ×3 (08:58→18:00)
== END 2017-02-11 19:38 | disposition home or self-care (01) ==
LOC: HSDC 11:16 → HSDI 16:56 → N06B 17:57
PROVIDERS: ADMIT Dentist Oral and Maxillofacial Surgery; ATTEND Dentist Oral and Maxillofacial Surgery
DX: S02.650A Fracture of angle of mandible, unspecified side, initial encounter for closed fracture (principal); J30.2 Other seasonal allergic rhinitis; Y09 Assault by unspecified means
CPT/HCPCS: 00190; 21462; J0690; J1170; J2270; 96360; 96361; G0378; J1100; J2405; J2710